=== PATIENT | female | born 1990 | race Caucasian/White ===

== ENCOUNTER 2019-09-16 04:57 | Emergency (ER) | payer OTHER ==
[2019-09-16] MEDS ORDERED: MOTRIN 600 MG PO ONE (05:13)
[2019-09-16] MEDS ORDERED: Oxy-IR 5 MG PO ONE (05:13)
[2019-09-16] MEDS ORDERED: ZOFRAN ODT 4 MG PO ONE (05:13)
[2019-09-16 05:15] VITALS: BP 146/99
[2019-09-16] MEDS ORDERED: ZOFRAN ODT 4 MG ONE (05:19)
[2019-09-16] MEDS ORDERED: MOTRIN 600 MG ONE (05:19)
--- NOTE | 2019-09-16 05:21 | ERPHSYRPT ---
- History of Present Illness Time Seen by Provider: 09/16/19 05:10 Source: patient Exam Limitations: no limitations Patient Subjective Stated Complaint: pt was walking out of house this am to go to work and slipped on icy stairs and is having severe pain in l wrist Triage Nursing Assessment: pt alert and oriented, states that pain in wrist Physician History: Patient slipped and fell onto left wrist, causing severe pain and radiation up to her elbow. She denies any other trauma to head, neck, back or right upper extremity. Occurred: just prior to arrival Method of Injury: fell Quality: aching, stabbing Severity of Pain-Max: severe Severity of Pain-Current: severe Extremities Pain Location: wrist: left Modifying Factors: Improves With: immobilization. Worsens With: movement Associated Symptoms: No back pain, No chills, No chest discomfort, No chest pain , No dyspnea, No fever, No jaw pain, No nausea, No neck pain, No sweating, No short of breath, No vomiting Allergies/Adverse Reactions: acetaminophen [From Vicodin] Allergy (Mild, Verified 09/16/19 05:15) Hives dextromethorphan HBr [From Dimetapp Cold-Congestion] Allergy (Mild, Verified 05:15) Hives diphenhydramine HCl [From Dimetapp Cold-Congestion] Allergy (Mild, Verified 05:15) Hives guaifenesin [From Dimetapp Cold-Congestion] Allergy (Mild, Verified 09/16/19 05: 15) Hives hydrocodone bitartrate [From Vicodin] Allergy (Mild, Verified 09/16/19 05:15) Hives phenylephrine HCl [From Dimetapp Cold-Congestion] Allergy (Mild, Verified 05:15) Hives pseudoephedrine HCl [From Dimetapp Cold-Congestion] Allergy (Mild, Verified 05:15) Hives Home Medications: Bupropion HCl [Bupropion HCl Sr] 150 mg PO BID 09/16/19 [History] Hx Tetanus, Diphtheria Vaccination/Date Given: Yes Hx Influenza Vaccination/Date Given: Yes Hx Pneumococcal Vaccination/Date Given: No - Review of Systems Constitutional: No Fatigue, No Lethargy Eyes: No Eye Pain, No Vision Changes Ears, Nose, & Throat: No Ear Pain, No Nose Congestion, No Nose Discharge, No Epistaxis, No Mouth Swelling, No Loose Teeth Respiratory: No Cough, No Dyspnea Cardiac: No Chest Pain, No Edema, No Syncope Abdominal/Gastrointestinal: No Abdominal Pain, No Nausea, No Vomiting Genitourinary Symptoms: No Hematuria, No Flank Pain Musculoskeletal: No Back Pain, No Neck Pain Skin: No Rash Neurological: No Dizziness, No Focal Weakness, No Headache, No Parasthesia, No Sensory Changes, No Tremors Psychological: No Anxiety Endocrine: No Excessive Sweating Hematologic/Lymphatic: No Easy Bleeding, No Easy Bruising All Other Systems: Reviewed and Negative - Past Medical History Pertinent Past Medical History: Yes Neurological History: No Pertinent History ENT History: No Pertinent History Cardiac History: No Pertinent History Respiratory History: No Pertinent History Endocrine Medical History: No Pertinent History Musculoskeletal History: Other GI Medical History: No Pertinent History History: No Pertinent History Psycho-Social History: No Pertinent History Female Reproductive Disorders: Other - Past Surgical History Past Surgical History: Yes Female Surgical History: Section, Other Other Surgical History: REMOVED RT OVARY DURING FIRST CSECTION - Social History Smoking Status: Never smoker Exposure to second hand smoke: No Drug Use: none Patient Lives Alone: No - Female History Hx Last Menstrual Period: depo shot Hx Now: No - Nursing Vital Signs Nursing Vital Signs: Initial Vital Signs Temperature 98.1 F 09/16/19 05:04 Pulse Rate 84 09/16/19 05:04 Respiratory Rate 18 09/16/19 05:04 Blood Pressure 146/99 09/16/19 05:04 O2 Sat by Pulse Oximetry 100 09/16/19 05:04 Pain Scale Pain Intensity 10 - Physical Exam General Appearance: no apparent distress, alert Eyes, Ears, Nose, Throat Exam: normal ENT inspection, moist mucous membranes Neck Exam: normal inspection, non-tender, supple, full range of motion, No Brudzinski, No tenderness lateral, No tenderness midline Cardiovascular/Respiratory Exam: chest non-tender, normal breath sounds, regular rate/rhythm, heart sounds normal, no JVD, no M/R/G, no respiratory distress Abdominal Exam: non-tender, No guarding, No tenderness Back Exam: normal inspection, normal range of motion, No CVA tenderness, No vertebral tenderness, No point tenderness Shoulder Exam: normal inspection, non-tender, no evidence of injury, normal ROM , No bone tenderness, No deformity Elbow/Forearm Exam: normal inspection, non-tender, no evidence of injury, normal ROM, No bone tenderness, No deformity Wrist Exam: bone tenderness (left wrist), deformity (left wrist), limited ROM ( left wrist), pain (left wrist), swelling (left wrist) Hand Exam: normal inspection, non-tender, no evidence of injury, normal ROM, No bone tenderness, No deformity, No laceration, No limited ROM Neuro/Tendon Exam: normal sensation, normal motor functions Mental Status Exam: alert, oriented x 3, cooperative Skin Exam: normal color, warm, dry, No petechiae, No cyanosis SpO2 Interpretation: normal SpO2: 100 O2 Delivery: Room Air Procedures - Splinting Location of Splint: Left, Wrist Type of Splint: Other (Orthoglass Sugar Tong Splint) Splint Applied By: ED Nurse Pre-Proc Neuro Vasc Exam: normal Post-Proc Neuro Vasc Exam: neurovascular intact - Radiology Exams Left Wrist X-ray Interpretation: Interpreted by me, Reviewed by me, Displaced Fracture, Other (distal radius metaphyseal fracture with comminution, shortening, and angulation) Ordered Tests: Active Orders 24 hr Category Date Time Status Sling Application STAT Care 09/16/19 06:37 Active Splint STAT Care 09/16/19 06:20 Active WRIST (MIN 3 VIEWS) Stat Exams 09/16/19 05:15 Taken Medication Summary Discontinued Medications Generic Name Dose Route Start Last Admin Trade Name Francoq PRN Reason Stop Dose Admin Ibuprofen 600 mg 09/16/19 05:13 09/16/19 05:21 Motrin 600 Mg PO 09/16/19 05:14 600 mg STAT ONE Administration Ibuprofen Confirm 09/16/19 05:19 Motrin 600 Mg Administered 09/16/19 05:20 Dose 600 mg .ROUTE .STK-MED ONE Ondansetron HCl 4 mg 09/16/19 05:13 09/16/19 05:21 Zofran Odt 4 Mg PO 09/16/19 05:14 4 mg STAT ONE Administration Ondansetron HCl Confirm 09/16/19 05:19 Zofran Odt 4 Mg Administered 09/16/19 05:20 Dose 4 mg .ROUTE .STK-MED ONE Oxycodone HCl 5 mg 09/16/19 05:13 09/16/19 05:29 Oxy-Ir 5 Mg PO 09/16/19 05:14 5 mg PCHS ONE Administration - Progress Progress: improved Progress Note: 09/16/19 06:21 Patient tolerated the pain medication very well especially with the Zofran as patient's pain is better controlled and she has no rash, hives, respiratory difficulty or hypotension 09/16/19 06:37 Patient is neurovascularly intact after placement of the splint. Patient is to follow-up with [facility] in [place], [place] or Orthopedic Clinic in [facility] on 09/18/2019 to establish with Orthopedic Surgery. Counseled pt/family regarding: diagnosis, need for follow-up, rad results - Departure Departure Disposition: Home Clinical Impression: Elevated blood pressure reading without diagnosis of hypertension Closed fracture of left distal radius Qualifiers: Encounter type: initial encounter Fracture morphology: Colles' Qualified Code(s ): S52.532A - Colles' fracture of left radius, initial encounter for closed fracture Condition: Good Critical Care Time: No Referrals: SAMY LUIS [Primary Care Provider] - [facility]Ortho M-F [id number] Instructions: Colles' Fracture (DC) Additional Instructions: Follow-up with Orthopedic Surgery clinic on 09/18/2019. Return immediately to the emergency room if you notice discoloration to your fingers, numbness or tingling in your fingers, loss of strength in your hand or fingers or any other concerning signs or symptoms that were not present at today's emergency department visit for immediate reevaluation in the emergency department. Forms: Work/School Release Form Prescriptions: Oxycodone HCl 5 mg Ir [Oxy-IR 5 MG] 5 mg PO Q6H PRN PRN #10 tab MDD 4 PRN Reason: Pain Ondansetron ODT 4 MG [Zofran Odt 4 mg] 4 mg PO Q8H PRN PRN #10 tab.rapdis PRN Reason: Nausea Etodolac 400 mg [Lodine 400 mg] 400 mg PO BID PRN PRN #20 tablet PRN Reason: Pain
[2019-09-16 07:14] VITALS: PULSE 87; O2SAT 98
--- NOTE | 2019-09-16 10:04 | XRAY ---
Indication: Pain following fall. Comparison: None 3 views of the left wrist demonstrates mildly angulated comminuted fracture distal radius with soft tissue swelling. No other bony, articular, or soft tissue abnormalities.
== END 2019-09-16 07:11 | disposition home or self-care (01) ==
LOC: ED 04:57
DX: S52.532A Colles' fracture of left radius, initial encounter for closed fracture (principal); R03.0 Elevated blood-pressure reading, without diagnosis of hypertension
CPT/HCPCS: 29126; 73110; 99284; Q0162; A9270-GY

== ENCOUNTER 2023-06-04 06:29 | Day surgery (SDC) | payer OTHER ==
[2023-06-04 06:58] LABS: HCG URINE TEST NEGATIVE (NEGATIVE)
[2023-06-04] MEDS ORDERED: Lactated Ringers 1,000 ML IV ONE (06:59)
[2023-06-04] MEDS ORDERED: Lactated Ringers 1,000 ML IV SCH (07:00)
[2023-06-04 07:09] VITALS: RESP 18; O2SAT 96
[2023-06-04] MEDS ORDERED: DIPRIVAN 200 MG/20 ML IV ONE ×2 (08:05→08:15)
[2023-06-04] MEDS ORDERED: Xylocaine-Mpf 2% 5 Ml Vial ONE (08:05)
--- NOTE | 2023-06-04 08:48 | OP ---
SURGERY DATE/TIME: 06/04/2023812 PREOPERATIVE DIAGNOSIS: Abdominal pain. POSTOPERATIVE DIAGNOSIS: Normal colon. PROCEDURE: Colonoscopy. SURGEON: Dr. Garcia. ANESTHESIA: Medications given by anesthesia department. HISTORY: The patient is a 32-year-old white female presenting now for persistent abdominal pain. The patient is felt to need to have evaluation performed. We discussed colonoscopy with her which she decided she wished to proceed with. The patient was appraised of the risks of the procedure including the risk of perforation, phlebitis, untoward reaction to medication, bleeding and missed lesions. The patient verbalized her understanding and desired to have the procedure performed. DESCRIPTION OF PROCEDURE: The patient was given the medications by the anesthesia department. She had continuous pulse oximetry, ECG monitoring and intermittent blood pressure monitoring. She was placed in the left lateral decubitus position. A digital rectal examination was performed and revealed normal anal sphincter tone and no masses. The flexible Olympus pediatric colonoscope was used to intubate the rectum. A view of the colon was developed sequentially to the cecum including a short distance in the terminal ileum. Upon insertion and withdrawal, including a retroflex view in the rectum, no mucosal lesions were encountered. The scope was removed from the patient who tolerated the procedure well and was sent back to OP recovery in good condition. The prep was noted to be fair to good.
[2023-06-04 09:14] VITALS: BP 116/83; PULSE 82; TEMP 97.5
== END 2023-06-04 09:15 | disposition home or self-care (01) ==
LOC: SDC 06:29
PROVIDERS: ATTEND Family Medicine
DX: R10.9 Unspecified abdominal pain (principal)
CPT/HCPCS: 81025; J2704

== ENCOUNTER 2023-09-16 06:22 | Day surgery (SDC) | payer OTHER ==
--- NOTE | 2023-09-15 09:35 | HP ---
DATE OF SURGERY: 09/16/2023 HISTORY OF PRESENT ILLNESS: The patient is a 33-year-old female who presented with cholelithiasis. She had epigastric pain radiating to the right side and to the back. She had some severe attacks that have doubled her over and lingered for hours. She is starting to have problems daily with pain. She has been off Ozempic for one year. She has had this pain despite that. She does have nausea with meals. She has chronic diarrhea. She has seen GI in the past. They did do a small bowel follow through on her that showed a fast transit. She had a colonoscopy with Dr. Garcia that was good. PAST MEDICAL HISTORY: Depression. PAST SURGICAL HISTORY: section. ALLERGIES: DIMETAPP, ACETAMINOPHEN, HYDROCODONE BITARTRATE (HIVES). MEDICATIONS: None reported. FAMILY HISTORY: None reported. SOCIAL HISTORY: Occasional alcohol. REVIEW OF SYSTEMS: CONSTITUTIONAL: Denies fever or chills. CHEST: Denies shortness of breath. CVS: Denies chest pain. ABDOMEN: Reports abdominal pain. PHYSICAL EXAMINATION: GENERAL: No acute distress. CHEST: Nonlabored. No shortness of breath. CVS: Regular rate and rhythm. ABDOMEN: Soft. IMPRESSION: Cholelithiasis. PLAN: Laparoscopic cholecystectomy with Dr. Bo Garcia. As dictated by Shereen Ellison NP.
[~2023-09-16 06:22] MED LIST: Sensorcaine 0.25% 10 ML ONE
[2023-09-16] MEDS ORDERED: Versed 2 MG/2 ML Injection IV PRN (06:29)
[2023-09-16] MEDS ORDERED: Lactated Ringers 1,000 ML IV ONE ×2 (06:29→09:54)
[2023-09-16] MEDS ORDERED: Pepcid 20 MG VIAL IV ONE ×2 (06:29→07:08)
[2023-09-16] MEDS ORDERED: MEFOXIN 2 GM PREMIX** 2 GM/50 ML ML IV ONE (06:29)
[2023-09-16] MEDS ORDERED: Reglan 10 MG/2 ML ONE (06:29)
[2023-09-16] MEDS ORDERED: Lactated Ringers 1,000 ML IV SCH (06:30)
[2023-09-16 06:44] LABS: HCG URINE TEST NEGATIVE (NEGATIVE)
[2023-09-16] MEDS ORDERED: Pepcid 20 MG PO ONE (06:44)
[2023-09-16] MEDS ORDERED: Reglan 10 MG/2 ML IV ONE (06:44)
[2023-09-16] MEDS ORDERED: MEFOXIN 2 GM PREMIX** 2 GM/50 ML ML IV SCH (07:00)
[2023-09-16 07:03] VITALS: RESP 16
[2023-09-16] MEDS ORDERED: Versed 2 MG/2 ML Injection ONE (08:44)
[2023-09-16] MEDS ORDERED: Zemuron 100 MG/10 ML ONE (08:44)
[2023-09-16] MEDS ORDERED: DIPRIVAN 200 MG/20 ML IV ONE (08:44)
[2023-09-16] MEDS ORDERED: SUBLIMAZE 100 MCG/2 ML ONE ×2 (08:44→09:35)
[2023-09-16] MEDS ORDERED: Decadron 4 MG INJ ONE (09:00)
[2023-09-16] MEDS ORDERED: Zofran 4 MG/2 ML VIAL ONE (09:32)
[2023-09-16] MEDS ORDERED: TORAdol 30 mg Injection ONE (09:32)
[2023-09-16] MEDS ORDERED: BRIDION 200MG/2ML IV ONE (09:32)
[2023-09-16] MEDS ORDERED: DILAUDID 2 MG INJECTION ONE (09:40)
--- NOTE | 2023-09-16 09:56 | OP ---
SURGERY DATE/TIME: 09/16/2023 0848 PREOPERATIVE DIAGNOSIS: Symptomatic cholelithiasis. POSTOPERATIVE DIAGNOSIS: Symptomatic cholelithiasis with cholesterolosis. PROCEDURE: Laparoscopic cholecystectomy. SURGEON: Bo Garcia M.D. [employer]: Jewel Desai, [facility]. ANESTHESIA: General. COMPLICATIONS: None. CONDITION: Stable. DRAINS: None. ESTIMATED BLOOD LOSS: None. INDICATION: As above. DESCRIPTION OF PROCEDURE: The patient is taken to surgery. General anesthetic, routine prep and drape. Right upper quadrant Verses needle. Opening pressure of 3, insufflating pressure 14. Four - 5 ports. Good visualization. There were some adhesions and they were taken down. The gallbladder was distended. Cystic duct defined triply clipped. Cystic artery defined triply clipped. Gallbladder rolled out of gallbladder fossa. Gallbladder delivered through epigastric port. There were two - 1 cm stones and there was obvious visible cholesterolosis of the gallbladder. The field is dry and clean. Hole closure device at epigastric 10 port and then the CO2 exsufflated. Skin closed with 4-0 Vicryl and Steri-Strips. The patient tolerated the procedure satisfactorily.
[2023-09-16] MEDS ORDERED: Compazine 10 MG/2 ML ONE (10:38)
[2023-09-16] MEDS ORDERED: Transderm Scop 1.5MG Patch TOP PRN (12:25)
[2023-09-16 12:38] VITALS: PULSE 94
[2023-09-16 13:39] VITALS: BP 131/88; TEMP 97.4; O2SAT 95
== END 2023-09-16 13:45 | disposition home or self-care (01) ==
LOC: SDC 06:22
PROVIDERS: ATTEND Surgery
DX: K80.20 Calculus of gallbladder without cholecystitis without obstruction (principal)
CPT/HCPCS: 81025; J0694; J1100; J1170; J1885; J2250; J2405; J2704; J3010; A9270-GY

== ENCOUNTER 2024-09-05 06:46 | Day surgery (SDC) | payer OTHER ==
[2024-09-05] MEDS: Lactated Ringers 1,000 ML IV SCH (07:28)
[2024-09-05] MEDS: Pepcid 20 MG VIAL IV ONE (07:28)
[2024-09-05] MEDS: Transderm Scop 1.5MG Patch TOP PRN (07:28)
[2024-09-05] MEDS: Reglan 10 MG/2 ML IV ONE (07:28)
[2024-09-05] MEDS ORDERED: CEFAZOLIN 2 GM/100 ML NaCl 2 GM/100 ML IVPB IV SCH (07:30)
[2024-09-05 07:43] VITALS: RESP 18
[2024-09-05 07:43] LABS: HCG URINE TEST NEGATIVE (NEGATIVE)
[2024-09-05] MEDS ORDERED: Decadron 4 MG INJ ONE (08:33)
[2024-09-05] MEDS ORDERED: DIPRIVAN 200 MG/20 ML IV ONE (08:33)
[2024-09-05] MEDS ORDERED: Zofran 4 MG/2 ML VIAL ONE (08:33)
[2024-09-05] MEDS ORDERED: TORAdol 30 mg Injection ONE (08:33)
[2024-09-05] MEDS ORDERED: Sodium Chloride 0.9% 1000 ML 1,000 ML ONE (08:55)
[2024-09-05] MEDS ORDERED: Hydromorphone 1 mg/ml Injection ONE (09:35)
[2024-09-05] MEDS: Zofran 4 MG/2 ML VIAL IV PRN (10:22)
[2024-09-05 10:26] VITALS: O2SAT 98
[2024-09-05 10:37] VITALS: BP 142/96; PULSE 83; TEMP 97.2
--- NOTE | 2024-09-07 11:36 | OP ---
SURGERY DATE/TIME: 09/05/2024 [id number] PREOPERATIVE DIAGNOSIS: Menorrhagia. POSTOPERATIVE DIAGNOSIS: Menorrhagia. PROCEDURE: Hysteroscopy, dilation and curettage with endometrial ablation using NovaSure done twice. SURGEON: Dangelo Duarte DO AIRLINE RADIO OPERATOR: Lorena Gaffney. ANESTHESIA: General. ESTIMATED BLOOD LOSS: Minimal. COMPLICATIONS: None. DESCRIPTION OF PROCEDURE AND FINDINGS: The risks, benefits, indications, and alternatives of the procedure were reviewed with the patient prior to the procedure. Patient understood the risk of infection, bleeding, bowel injury, bladder injury, ureteral injury, uterine perforation, pelvic infection, thromboembolic disorder associated with the surgery and desires to have the surgery as a possible means to alleviate her current medical condition. The patient also understood the risk of the difficulty of having a after having had this procedure. At this point, patient was taken to the operating room, given general sedation, placed in the dorsal lithotomy position, prepped and draped in the usual sterile fashion. A weighted speculum was then placed in the patient's vagina, and the anterior lip of the cervix was grasped with a single-tooth tenaculum. Endocervical dilators were advanced through the endocervical region as a means to dilate the cervix and a 5 mm hysteroscope was then placed into the fundus of the uterus where visualization appeared to be within normal limits and there were no gross abnormalities that were noted by hysteroscopy. The hysteroscope was removed, and a curette was then placed into the fundus of the uterus and curettage was performed in all quadrants of the uterus, retrieving a mild to moderate amount of tissue. At this point, hemostasis was obtained. At this point, the NovaSure was then introduced through the endocervical region, toward the fundal region, retracted approximately 1 cm and the engaged with a length of 6.5 cm and a width of 4.5 cm. The instrument was turned on for an ablative time of 34 seconds. However, there appeared to be difficulty with the ablation during the first run of the ablative time. Therefore, the machine was turned off and turned back on with an additional ablative time of 50 seconds. From this point, hemostasis was obtained. The instrument was disengaged and removed from the uterine cavity without complication. At this point, all instruments were removed from the patient's vaginal region. The patient was then taken out of the dorsal lithotomy position, was taken out of anesthesia, was then taken to the recovery room in stable condition. All instruments and laps were accounted for x2.
== END 2024-09-05 10:40 | disposition home or self-care (01) ==
LOC: SDC 06:46
PROVIDERS: ATTEND Obstetrics & Gynecology
DX: N92.0 Excessive and frequent menstruation with regular cycle (principal)
CPT/HCPCS: 58563; 81025; J0690; J1100; J1171; J1885; J2405; J2704; A9270-GY